=== PATIENT | female | born 1930 | race African-American/Black ===

== ENCOUNTER 2017-02-12 14:06 | Emergency (ER) | payer MEDICARE, OTHER ==
[~2017-02-12] VITALS: Ht 162.6 cm; Wt 64.0 kg
[~2017-02-12 14:06] MED LIST: ESOM40CA PO; EZET10TA PO; FEBU40TA PO; OLME1TAB18 PO
[2017-02-12] MEDS ORDERED: TRAM50TA3 PO (15:22)
[2017-02-12] MEDS ORDERED: METHAZOLAMIDE (15:22)
[2017-02-12 20:15] VITALS: BP 150/90
== END 2017-02-12 20:17 | disposition home or self-care (01) ==
LOC: ER 14:06
DX: M25.532 Pain in left wrist (principal); M25.562 Pain in left knee; M25.561 Pain in right knee; M25.552 Pain in left hip; M25.551 Pain in right hip; I12.9 Hypertensive chronic kidney disease with stage 1 through stage 4 chronic kidney disease, or unspecified chronic kidney disease; N18.9 Chronic kidney disease, unspecified; E78.00 Pure hypercholesterolemia, unspecified; Z88.6 Allergy status to analgesic agent; Z96.651 Presence of right artificial knee joint; W01.0XXA Fall on same level from slipping, tripping and stumbling without subsequent striking against object, initial encounter; Y92.018 Other place in single-family (private) house as the place of occurrence of the external cause
CPT/HCPCS: 73110; 73521; 73562; 99284

== ENCOUNTER → 2017-06-25 | Outpatient (CLI) | payer MEDICARE, OTHER ==
[~2017-06-25] MED LIST changes: +METHAZOLAMIDE; +TRAM50TA3 PO
== END | disposition home or self-care (01) ==
LOC: MAMMO 09:25
PROVIDERS: ATTEND Internal Medicine
DX: Z12.31 Encounter for screening mammogram for malignant neoplasm of breast (principal)
CPT/HCPCS: G0202

== ENCOUNTER 2018-05-16 14:58 | Emergency (ER) | payer MEDICARE, OTHER ==
[~2018-05-16] VITALS: Ht 162.6 cm; Wt 64.0 kg
[~2018-05-16 14:58] MED LIST changes: -EZET10TA PO; +ZET10 PO
[2018-05-16] MEDS ORDERED: ONDANSETRON HCL 4MG/2ML VIAL IV STA (17:17)
[2018-05-16] MEDS ORDERED: MORPHINE SULFATE 4 MG/ML CPJ (NOT FOR IM USE) IV STA (17:17)
[2018-05-16 18:42] LABS: BASOPHILS % 0.8 % (0.0-2.0); EOSINOPHILS % 0.6 % (0.0-5.0); HEMATOCRIT. 36.2 % (36.0-48.0); HEMOGLOBIN. 11.9 g/dL (12.0-16.0); LYMPHOCYTES % 18.4 % (20.0-50.0); MEAN CORPUSCULAR HEMOGLOBIN 29.8 pg (28.0-32.0); MEAN CORPUSCULAR VOLUME 90.5 fL (81.0-99.0); MEAN PLATELET VOLUME 9.3 fl (7.4-10.4); MONOCYTES % 7.6 % (2.0-8.0); NEUTROPHILS % 72.6 % (40.0-76.0); PLATELET 220 x1000/uL (130-400); RED CELL DISTRIBUTION WIDTH 13.7 % (11.6-14.6)
[2018-05-16 18:47] LABS: CHLORIDE 116 mEq/L (98-107); PROTHROMBIN TIME 10.2 sec (9.4-11.6)
[2018-05-16 21:38] VITALS: BP 137/93
== END 2018-05-16 21:50 | disposition home or self-care (01) ==
LOC: ER 16:05 → CANBEDREQ 22:02
DX: R10.30 Lower abdominal pain, unspecified (principal); N28.9 Disorder of kidney and ureter, unspecified; N28.1 Cyst of kidney, acquired; R07.89 Other chest pain; I10 Essential (primary) hypertension; E78.00 Pure hypercholesterolemia, unspecified; Z88.5 Allergy status to narcotic agent; W19.XXXA Unspecified fall, initial encounter; Y93.89 Activity, other specified; Y92.89 Other specified places as the place of occurrence of the external cause; Y99.8 Other external cause status
CPT/HCPCS: 36415; 71045; 74176; 80053; 83690; 83880; 84484; 85025; 85610; 93005; 96374; 96375; 99285; J2270; J2405